=== PATIENT | female | born 1955 | race Caucasian/White ===

== ENCOUNTER 2020-08-09 14:20 | Outpatient (CLI) | payer BC, SELFPAY ==
--- NOTE | ~2020-08-09 | MM_ITS ---
EXAMINATION: MM screening ranjit BI w rhona HISTORY: Screening mammogram TECHNIQUE: Craniocaudal and mediolateral oblique 3-D tomosynthesis images were obtained and synthetic 2-D images were generated. Bilateral rotated lateral cc views. ......CAD analysis was submitted and interpreted. COMPARISON: 08/06/2019, 08/09/2018, 07/19/2017 bilateral digital screening mammogram examinations BREAST PARENCHYMAL COMPOSITION: There are scattered areas of fibroglandular density. FINDINGS: There is a biopsy marker on the right; history of prior bilateral benign breast biopsies. T here are scattered bilateral benign calcifications. There is no evidence of suspicious mass, calcific ation, or architectural distortion to suggest malignancy in either breast. There has been no suspicio us interval change. IMPRESSION: 1. No mammographic evidence of malignancy. 2. Recommend routine screening mammography in one year. BI-RADS Category 2: Benign finding(s). Reviewed, dictated and finalized at location A.
== END 2020-08-09 14:21 | disposition home or self-care (01) ==
PROVIDERS: PCP Obstetrics & Gynecology; Visit Provider Obstetrics & Gynecology
DX: Z12.31 Encounter for screening mammogram for malignant neoplasm of breast (principal)
CPT/HCPCS: 77063; 77067

== ENCOUNTER 2021-01-05 20:39 | Emergency (ER) | payer BC, SELFPAY ==
--- NOTE | ~2021-01-05 | XR_ITS ---
XR chest 2V DATE: 01/05/2021 21:07 INDICATION: Chest tightness for one hour. History of hypertension. TECHNIQUE: PA and lateral views COMPARISON: None FINDINGS: Normal heart size. No hilar or mediastinal enlargement. No pulmonary infiltrate or consolid ation, pleural effusion or pulmonary vascular congestion or pneumothorax. Diffuse osteopenia. Lumbar levoscoliosis. IMPRESSION: No active cardiopulmonary disease Reviewed, dictated and finalized at location A.
--- NOTE | 2021-01-05 20:41 | ECG_ITS ---
Measurements Intervals [place] Rate: 62 P: 51 PA: 175 QRS: 66 QRSD: 88 T: 46 QT: 394 QTc: 401 Interpretive Statements SINUS RHYTHM LOW QRS VOLTAGE IN PRECORDIAL LEADS BORDERLINE ECG Electronically Signed On 01-06-2021 7:15:51 CDT by Elia Jean Baptiste D.O.
[2021-01-05 20:43] VITALS: BP 148/73; PULSE 64; RESP 18; TEMP 36; O2SAT 100
[2021-01-05 21:00] LABS: Basophils Absolute Auto 0.1 K/mm3 (0.0-0.1); Basophils Percent Auto 0.9 % (0.2-1.2); Eosinophils Absolute Auto 0.6 K/mm3 (0-0.3); Eosinophils Percent Auto 7.8 % (0-4.4); Hematocrit 39.7 % (37.0-47.0); Hemoglobin 13.6 g/dL (12.0-15.0); Immature Granulocyte Absolute 0.01 K/mm3 (0.00-0.031); Immature Granulocyte Percent A 0.1 % (0-0.5); Lymphocytes Absolute Auto 3.36 K/mm3 (0.9-3.2); Lymphocytes Percent Auto 41.4 % (18.3-44.2); Mean Corpuscular HGB Conc 34.3 g/dl (32-36); Mean Corpuscular Hemoglobin 31.3 pg (26-34); Mean Corpuscular Volume 91.5 fl (80-100); Mean Platelet Volume 9.3 fl (7.4-10.4); Monocytes Absolute Auto 0.6 K/mm3 (0.1-0.6); Monocytes Percent Auto 7.8 % (2.6-8.5); Neutrophils Absolute Auto 3.4 K/mm3 (1.3-6.7); Platelet Count Result 267 k/mm3 (150-375); Red Blood Count 4.34 M/mm3 (4.2-5.4); Red Cell Distribution Width 12.6 % (11.5-14.5); White Blood Count 8.1 K/mm3 (4.5-10.0)
[2021-01-05 21:09] LABS: INR 0.9; Prothrombin Time 12.2 Seconds (11.1-14.7)
[2021-01-05 21:10] LABS: Partial Thromboplastin Time 29.3 SECONDS (22.3-36.8)
[2021-01-05 21:11] LABS: Anion Gap 7 mmol/L (8-16); Blood Urea Nitrogen 23 mg/dL (7-17); Calcium 10.2 mg/dL (8.4-10.2); Carbon Dioxide 29 mmol/L (22-30); Chloride 103 mmol/L (98-107); Estimated CRCL calculation 41 ml/min; Estimated Glomerular Filt Rate > 60; Glucose 116 mg/dL (65-105); Potassium 4.1 mmol/L (3.4-5.0); Sodium 139 mmol/L (137-145)
[2021-01-05 21:23] LABS: Troponin I < 0.012 ng/mL (0.000-0.034)
[2021-01-05 21:35] VITALS: BP 132/78; PULSE 61; RESP 18; O2SAT 99
--- NOTE | 2021-01-05 21:48 | ED.CHESTPAIN ---
HPI - Chest Pain General Chief Complaint: Chest Pain Stated Complaint: chest tightness x 40 minutes Time Seen by Provider: 01/05/21 21:33 Source: patient Mode of arrival: ambulatory History of Present Illness HPI narrative: This is a 65 year old female with history of hypertension and hyperlipidemia who presents for evaluation midsternal chest tightness. She was sitting in her recliner when she developed nonradiating midsternal tightness. THis tightness last intermittently for 10 minutes and it has been completely resolved for over an hour. She denies having associated diaphoresis, sob, palpitations, nausea, vomiting, arm pain or back pain. She denies pain worse with exertion. She started taking pepcid 1 week ago and she read that chest tightness is a side effect. She just want to get checked out to be safe. Related Data Home Medications Medication Instructions Recorded Confirmed atorvastatin 20 mg tablet 20 mg PO DAILY 07/23/20 calcium carbonate 200 mg calcium 200 mg PO QID 07/23/20 (500 mg) chewable tablet calcium carbonate 600 mg(1,500 1 tablet PO DAILY 07/23/20 mg)-vitamin D3 800 unit chewable tablet levothyroxine 75 mcg capsule 75 mcg PO DAILY 07/23/20 metoprolol tartrate 25 mg tablet 25 mg PO DAILY 07/23/20 multivitamin 1 tablet PO DAILY 07/23/20 lisinopril 01/05/21 Allergies Allergy/AdvReac Type Severity Reaction Status Date / Time omeprazole Allergy Chest Pain Verified 01/05/21 20:45 Review of Systems Review of Systems: All systems reviewed & are unremarkable except as noted in HPI and below PMFSH Past Medical History Medical History (Updated 01/06/21 @ 00:45 by Marilynn Rao MD) Anemia 2019 Anxiety 2015 Jose A's disease Hyperlipidemia 1995 Hypertension Hypothyroidism Osteoporosis 2017, 2019 Pneumonia 1960 Tonsillectomy planned Vaginal delivery X3 07/02/84 Full term male 6lbs 2oz 06/22/87 Full term female 6lbs 13.5oz 03/10/89 Full term male 7lbs 6.5 oz Surgical History Surgical History (Updated 07/23/20 @ 11:45 by Julianna Myles) H/O breast biopsy X3 H/O dilation and curettage History of ear surgery Family History Family History (Updated 07/23/20 @ 11:46 by Julianna Myles) Other Carcinoma of colon Grandparent Diabetes mellitus Cerebrovascular accident Father Cerebrovascular accident Hypertension Hyperlipidemia Social History Social History (Updated 07/23/20 @ 11:47 by Julianna Myles) Smoking status: Never smoker Alcohol intake: current Drinks per week: 2 Substance use: never Gender identity (if verbalized by the patient): Female Sexual Orientation (if Verbalized by the Patient): Straight or Heterosexual Exam Narrative: Exam Narrative: GENERAL: Well-appearing, well-nourished, and in no acute distress. HEAD: Normocephalic, atraumatic EYES: PERRLA and EOMI, conjunctiva clear without discharge THROAT:Mucous membranes moist, Oropharynx normal without erythema, exudate, peritonsillar swelling or fluctuance NECK: Supple, without lymphadenopathy or mass RESPIRATORY: No respiratory distress, Airway patent, Respirations non-labored, Clear to auscultation without rales, rhonchi or wheeze HEART: Regular rate and rhythm. No murmur heard. Normal peripheral pulses. ABDOMEN: Soft, nontender, nondistended, normal active bowel sounds. No masses. No rebound or guarding, No organomegaly. EXTREMITIES: No edema, normal strength with full range of motion. SKIN: Warm, dry, normal color without rash NEURO: Alert and oriented x3. CN 2-12 grossly intact. No focal deficits. PSYCH: Normal mood and affect. Course Reevaluation(s) Reevaluation #1: PAtient has not had chest pain during her visit. THis pain seems unlikely anginal. She had 2 negative troponins. She will follow up with her primary care physician. Vital Signs Vital signs: Vital Signs Temperature 96.8 F L 01/05/21 20:43 Pulse Rate 64 01/05/21 20:43
--- NOTE | 2021-01-05 22:08 | PC.NURSE ---
patient refused iv start
--- NOTE | 2021-01-05 23:00 | PC.NURSE ---
Assumed care of pt. at this time. Report from BEN Trejo
[2021-01-05 23:05] VITALS: BP 105/73; PULSE 60; O2SAT 99
[2021-01-06 00:05] VITALS: BP 110/74; PULSE 59; PULSE 62; RESP 14; O2SAT 98
[2021-01-06 00:38] LABS: Troponin I < 0.012 ng/mL (0.000-0.034)
== END 2021-01-06 00:45 | disposition home or self-care (01) ==
PROVIDERS: Emergency Medicine; Emergency Provider General Practice
DX: R07.89 Other chest pain (principal); I10 Essential (primary) hypertension; E78.5 Hyperlipidemia, unspecified; E06.3 Autoimmune thyroiditis; M81.0 Age-related osteoporosis without current pathological fracture; R94.31 Abnormal electrocardiogram [ECG] [EKG]
CPT/HCPCS: 36415; 71046; 80048; 84484; 85025; 85610; 85730; 93005; 99284

== ENCOUNTER 2021-10-05 14:52 | Outpatient (CLI) | payer BC, SELFPAY ==
--- NOTE | ~2021-10-05 | MM_ITS ---
EXAMINATION: MM screening ranjit BI w rhona HISTORY: Screening mammogram TECHNIQUE: Craniocaudal and mediolateral oblique 3-D tomosynthesis images were obtained and synthetic 2-D images were generated. CAD analysis was submitted and interpreted. COMPARISON: 08/09/2020, 08/06/2019, 07/30/2018 bilateral screening mammogram examinations BREAST PARENCHYMAL COMPOSITION: There are scattered areas of fibroglandular density. FINDINGS: There is a biopsy marker on the right; history of bilateral benign breast biopsies. Scattered bilateral benign calcifications. There is no evidence of suspicious mass, calcification, or architectural distortion to suggest malignancy in either breast. There has been no suspicious interv al change. IMPRESSION: 1. No mammographic evidence of malignancy. 2. Recommend routine screening mammography in one year. BI-RADS Category 2: Benign finding(s). Reviewed, dictated and finalized at location A. PARTNER
== END 2021-10-05 14:53 | disposition home or self-care (01) ==
LOC: ANHIMG 14:53
PROVIDERS: Visit Provider Obstetrics & Gynecology
DX: Z12.31 Encounter for screening mammogram for malignant neoplasm of breast (principal)
CPT/HCPCS: 77063; 77067